=== PATIENT | female | born 1935 | race Caucasian/White ===

== ENCOUNTER 2022-04-26 12:38 | Inpatient (IN) | payer MEDICARE, MEDICAID ==
[~2022-04-26] VITALS: Ht 154.9 cm; Wt 73.7 kg
[~2022-04-26 12:38] MED LIST: ACET-3407 PO; AMLO-257 PO; AMLO-258 PO; AMLO10TA55 PO; APIX5TAB PO; ASPI81TA87 PO; ATOR40TA28 PO; ATOR40TA71 PO; CHOL100018 PO; CHOL25TA4 PO; FURO20 PO; METF-1211 PO; METO50 PO; NITR0.4T50 SL; OMEP20 PO; VALS160T2 PO
[2022-04-26 13:02] LABS: BASOPHILS % (AUTO) 0.5 % (0.0-2.0); HEMATOCRIT 35.3 % (36-46); HEMOGLOBIN 12.2 g/dL (12.0-16.0); LYMPHOCYTES # (AUTO) 2.6 K/uL (1.0-4.8); LYMPHOCYTES % (AUTO) 29.4 % (22.0-44.0); MEAN CORPUSCULAR HEMOGLOBIN 30.1 pg (26.0-34.0); MEAN CORPUSCULAR HGB CONC 34.5 G/dL (31.0-37.0); MEAN CORPUSCULAR VOLUME 87 fL (80-100); MONOCYTES # (AUTO) 0.5 K/uL (0.1-1.0); MONOCYTES % (AUTO) 6.1 % (2.0-9.0); NEUTROPHILS # (AUTO) 5.3 K/uL (1.8-7.7); PLATELET COUNT (AUTO) 340 K/uL (150-450); RED BLOOD CELL COUNT(AUTO) 4.04 MIL/uL (4.00-5.20); RED CELL DISTRIBUTION WIDTH 13.3 % (11.5-14.5)
[2022-04-26 13:12] LABS: CALCIUM, TOTAL 9.8 mg/dL (8.8-10.5); CREATININE 1.03 mg/dL (0.60-1.30); POTASSIUM 3.5 mmol/L (3.5-5.1)
[2022-04-26 13:14] LABS: PROTHROMBIN TIME 10.6 SEC (9.4-11.6)
[2022-04-26 13:17] LABS: ALBUMIN 3.8 g/dL (3.4-5.0); BILIRUBIN,TOTAL 0.3 mg/dL (0.1-1.0); TOTAL PROTEIN, SERUM 7.7 g/dL (6.4-8.2)
[2022-04-26 14:15] LABS: COVID AG,FIA SOURCE NASAL SWAB
[2022-04-26 14:42] LABS: APPEARANCE,URINE CLEAR (CLEAR); BILIRUBIN,URINE NEGATIVE (NEGATIVE); GLUCOSE, URINE (UA) 70-100 mg/dL (NEGATIVE); KETONES,URINE NEGATIVE (NEGATIVE); LEUKOCYTE ESTERASE ,URINE TRACE (NEGATIVE); NITRATE,URINE NEGATIVE (NEGATIVE); OCCULT BLOOD,URINE NEGATIVE (NEGATIVE); PROTEIN,URINE NEGATIVE (NEGATIVE); SPECIFIC GRAVITIY, URINE 1.008 (1.003-1.030); UROBILINOGEN,URINE <=1.0 mg/dL (<=1.0)
[2022-04-26 14:55] LABS: BACTERIA,URINE None Seen /HPF (None Seen); RBC,URINE None Seen /HPF (0-2); SQUAMOUS EPITHELIAL CELL,UR Few /LPF (None Seen); WBC,URINE 0-2 /HPF (0-5)
[2022-04-26] MEDS ORDERED: NITROGLYCERIN 0.4 MG SUBLINGUAL TABLET #25 SL PRN (16:30)
[2022-04-26] MEDS: ASPIRIN 81 MG DR TABLET PO SCH (17:00)
[2022-04-26] MEDS ORDERED: HEPARIN SODIUM,PORCINE 5,000 UNITS/ML VIAL IVP PRN ×2 (20:30)
[2022-04-26] MEDS ORDERED: BISACODYL 10 MG RECTAL RECTAL SUPPOSITORY PR PRN (20:30)
[2022-04-26] MEDS ORDERED: ZOLPIDEM TARTRATE 5 MG TABLET PO PRN (20:30)
[2022-04-26] MEDS ORDERED: ONDANSETRON HCL 4 MG/2 ML VIAL IVP PRN (20:30)
[2022-04-26] MEDS ORDERED: ACETAMINOPHEN 325 MG TABLET PO PRN (20:30)
[2022-04-26] MEDS ORDERED: MORPHINE SULFATE 2 MG/ML SYRINGE IVP PRN (20:30)
[2022-04-26] MEDS ORDERED: HYDROCODONE/ACETAMINOPHEN 5-325 MG TABLET PO PRN (20:30)
[2022-04-26] MEDS ORDERED: MAGNESIUM HYDROXIDE SUSPENSION 30 ML UDCUP PO PRN (20:30)
[2022-04-26] MEDS: DOCUSATE SODIUM 100 MG CAPSULE PO SCH (21:00)
[2022-04-26] MEDS: METOPROLOL TARTRATE 50 MG TABLET PO SCH (21:00)
[2022-04-26 21:03] VITALS: BP 135/81
[2022-04-26 21:17] LABS: BASOPHILS % (AUTO) 0.5 % (0.0-2.0); EOSINOPHILS % (AUTO) 1.9 % (1.0-6.0); HEMOGLOBIN 12.8 g/dL (12.0-16.0); LYMPHOCYTES # (AUTO) 2.5 K/uL (1.0-4.8); LYMPHOCYTES % (AUTO) 26.5 % (22.0-44.0); MEAN CORPUSCULAR HEMOGLOBIN 29.8 pg (26.0-34.0); MEAN CORPUSCULAR HGB CONC 33.7 G/dL (31.0-37.0); MEAN CORPUSCULAR VOLUME 88 fL (80-100); MONOCYTES # (AUTO) 0.5 K/uL (0.1-1.0); MONOCYTES % (AUTO) 5.8 % (2.0-9.0); NEUTROPHILS # (AUTO) 6.2 K/uL (1.8-7.7); NEUTROPHILS % (AUTO) 65.3 % (40.0-70.0); PLATELET COUNT (AUTO) 355 K/uL (150-450); RED BLOOD CELL COUNT(AUTO) 4.31 MIL/uL (4.00-5.20); RED CELL DISTRIBUTION WIDTH 13.5 % (11.5-14.5)
[2022-04-26 21:29] LABS: PROTHROMBIN TIME 10.7 SEC (9.4-11.6)
[2022-04-26] MEDS: LORazepam 2 MG/ML VIAL IVP PRN (22:46)
[2022-04-26] MEDS: HEPARIN SODIUM 25000 UNITS/D5W 250 ML IV PRN (23:04)
[2022-04-26 23:58] VITALS: BP 122/59
[2022-04-27] MEDS ORDERED: HEPARIN SODIUM,PORCINE 5,000 UNITS/ML VIAL SQ SCH
[2022-04-27 04:30] VITALS: BP 130/69
[2022-04-27 06:52] LABS: BASOPHILS % (AUTO) 0.5 % (0.0-2.0); EOSINOPHILS % (AUTO) 2.6 % (1.0-6.0); HEMATOCRIT 35.6 % (36-46); HEMOGLOBIN 12.2 g/dL (12.0-16.0); LYMPHOCYTES # (AUTO) 4.1 K/uL (1.0-4.8); LYMPHOCYTES % (AUTO) 36.6 % (22.0-44.0); MEAN CORPUSCULAR HEMOGLOBIN 30.1 pg (26.0-34.0); MEAN CORPUSCULAR HGB CONC 34.4 G/dL (31.0-37.0); MEAN CORPUSCULAR VOLUME 87 fL (80-100); MONOCYTES # (AUTO) 0.7 K/uL (0.1-1.0); MONOCYTES % (AUTO) 6.2 % (2.0-9.0); NEUTROPHILS # (AUTO) 6.1 K/uL (1.8-7.7); NEUTROPHILS % (AUTO) 54.1 % (40.0-70.0); PLATELET COUNT (AUTO) 340 K/uL (150-450); RED BLOOD CELL COUNT(AUTO) 4.07 MIL/uL (4.00-5.20); RED CELL DISTRIBUTION WIDTH 13.6 % (11.5-14.5)
[2022-04-27 07:10] LABS: ALBUMIN 3.9 g/dL (3.4-5.0); BILIRUBIN,TOTAL 0.5 mg/dL (0.1-1.0); CALCIUM, TOTAL 9.8 mg/dL (8.8-10.5); CREATININE 1.11 mg/dL (0.60-1.30); POTASSIUM 3.6 mmol/L (3.5-5.1); TOTAL PROTEIN, SERUM 7.6 g/dL (6.4-8.2)
[2022-04-27 07:24] VITALS: BP 160/82
[2022-04-27] MEDS: METOPROLOL TARTRATE 50 MG TABLET PO SCH ×2 (08:45→20:33)
[2022-04-27] MEDS: PANTOPRAZOLE SODIUM 40 MG DR TABLET PO SCH (08:45)
[2022-04-27] MEDS: ATORVASTATIN CALCIUM 40 MG TABLET PO SCH (08:45)
[2022-04-27] MEDS: DOCUSATE SODIUM 100 MG CAPSULE PO SCH ×2 (08:45→20:33)
[2022-04-27] MEDS: ASPIRIN 81 MG DR TABLET PO SCH (08:46)
[2022-04-27 11:20] VITALS: BP 168/89
[2022-04-27 17:47] VITALS: BP 152/81
[2022-04-27] MEDS: HEPARIN SODIUM 25000 UNITS/D5W 250 ML IV PRN (17:52)
[2022-04-27 19:16] VITALS: BP 165/87
[2022-04-27] MEDS ORDERED: HALOPERIDOL LACTATE 5 MG/ML VIAL ONE (22:43)
[2022-04-27] MEDS ORDERED: HALOPERIDOL LACTATE 5 MG/ML VIAL IM PRN (22:45)
[2022-04-27] MEDS: LORazepam 2 MG/ML VIAL IVP PRN (22:59)
[2022-04-27 23:36] VITALS: BP 130/77
[2022-04-28 04:03] VITALS: BP 150/84
[2022-04-28 06:49] LABS: HEMOGLOBIN A1C 7.5 % (3.8-5.6)
[2022-04-28 06:59] LABS: CALCIUM, TOTAL 9.7 mg/dL (8.8-10.5); CHOL/HDL RATIO 6.5 (3.9-5.7); CREATININE 0.91 mg/dL (0.60-1.30)
[2022-04-28 07:03] LABS: BASOPHILS % (AUTO) 0.3 % (0.0-2.0); EOSINOPHILS % (AUTO) 0.5 % (1.0-6.0); HEMATOCRIT 32.7 % (36-46); HEMOGLOBIN 11.4 g/dL (12.0-16.0); LYMPHOCYTES # (AUTO) 1.7 K/uL (1.0-4.8); LYMPHOCYTES % (AUTO) 20.5 % (22.0-44.0); MEAN CORPUSCULAR HEMOGLOBIN 30.6 pg (26.0-34.0); MEAN CORPUSCULAR HGB CONC 34.9 G/dL (31.0-37.0); MEAN CORPUSCULAR VOLUME 88 fL (80-100); MONOCYTES # (AUTO) 0.4 K/uL (0.1-1.0); MONOCYTES % (AUTO) 5.2 % (2.0-9.0); NEUTROPHILS # (AUTO) 6.2 K/uL (1.8-7.7); NEUTROPHILS % (AUTO) 73.5 % (40.0-70.0); PLATELET COUNT (AUTO) 299 K/uL (150-450); RED BLOOD CELL COUNT(AUTO) 3.72 MIL/uL (4.00-5.20); RED CELL DISTRIBUTION WIDTH 13.3 % (11.5-14.5)
[2022-04-28 07:23] VITALS: BP 136/80
[2022-04-28] MEDS ORDERED: POTASSIUM CHL 10 MEQ/WATER 50 ML IV PRN (08:00)
[2022-04-28] MEDS ORDERED: POTASSIUM CHLORIDE 20 MEQ ER TABLET PO PRN (08:00)
[2022-04-28 10:54] VITALS: BP 162/91
[2022-04-28] MEDS: METOPROLOL TARTRATE 50 MG TABLET PO SCH (11:06)
[2022-04-28] MEDS: PANTOPRAZOLE SODIUM 40 MG DR TABLET PO SCH (11:06)
[2022-04-28] MEDS: ATORVASTATIN CALCIUM 40 MG TABLET PO SCH (11:06)
[2022-04-28] MEDS: DOCUSATE SODIUM 100 MG CAPSULE PO SCH (11:06)
[2022-04-28 15:16] VITALS: BP 145/76
[2022-04-28] MEDS ORDERED: FERR325T27 PO (17:00)
[2022-04-28] MEDS ORDERED: OLAN2.5T29 PO (17:00)
[2022-04-28] MEDS ORDERED: VERA120T91 PO (17:00)
[2022-04-28] MEDS ORDERED: FENO160T75 PO (17:00)
[2022-04-28] MEDS ORDERED: DILT60TA3 PO (17:00)
[2022-04-28] MEDS ORDERED: ICOS0.5C PO (17:00)
[2022-04-28] MEDS ORDERED: DONE-52 PO (17:00)
[2022-04-28] MEDS ORDERED: METO-558 PO (17:05)
[2022-04-28] MEDS ORDERED: METO50 PO (17:06)
[2022-04-28] MEDS ORDERED: APIXABAN 5 MG TABLET PO SCH (21:00)
== END 2022-04-28 18:35 | disposition home or self-care (01) | DRG 311 ==
LOC: EMS 12:41 → 5S 18:39
PROVIDERS: ADMIT Internal Medicine; ATTEND Internal Medicine
DX: I20.0 Unstable angina (principal); I48.92 Unspecified atrial flutter; R07.89 Other chest pain; I48.91 Unspecified atrial fibrillation; E78.5 Hyperlipidemia, unspecified; E11.9 Type 2 diabetes mellitus without complications; Z20.822 Contact with and (suspected) exposure to COVID-19; I50.9 Heart failure, unspecified; Z95.0 Presence of cardiac pacemaker
CPT/HCPCS: 71045; 80048; 80053; 80061; 81001; 83036; 83880; 84132; 84484; 85025; 85610; 85730; 93005; 93306; 99285; J1630; J1644; J2060; 36415-L1; 36415-TC